=== PATIENT | male | born 1995 | race Caucasian/White ===

== ENCOUNTER 2022-09-07 19:21 | Emergency (ER) | payer SELFPAY ==
[~2022-09-07] VITALS: Ht 167.6 cm; Wt 72.0 kg
[2022-09-07] MEDS ORDERED: ACETAMINOPHEN 325MG TABLET PO ONE (20:00)
[2022-09-07] MEDS ORDERED: MORPHINE SULFATE 10 MG/ML CPJ IM ONE (21:30)
[2022-09-07 22:00] VITALS: BP 122/66
[2022-09-07] MEDS ORDERED: HYDR-4001 MT (22:44)
[2022-09-07] MEDS ORDERED: IBUP-2029 MT (22:44)
== END 2022-09-07 23:03 | disposition home or self-care (01) ==
LOC: ER 19:21
DX: S52.91XA Unspecified fracture of right forearm, initial encounter for closed fracture (principal); W01.0XXA Fall on same level from slipping, tripping and stumbling without subsequent striking against object, initial encounter; Y93.89 Activity, other specified; Y92.89 Other specified places as the place of occurrence of the external cause; Y99.8 Other external cause status; F17.200 Nicotine dependence, unspecified, uncomplicated
CPT/HCPCS: 73080; 73090; 96372; 99291; J2270; Z7610